=== PATIENT | male | born 1990 | race Caucasian/White ===

== ENCOUNTER 2021-01-21 20:20 | Emergency (ER) | payer SELFPAY ==
[2021-01-21] MEDS ORDERED: Morphine 4 MG/ML VIAL ONE (23:32)
== END 2021-01-22 00:15 | disposition home or self-care (01) ==
LOC: ERS 20:20
DX: S39.012A Strain of muscle, fascia and tendon of lower back, initial encounter (principal); F17.210 Nicotine dependence, cigarettes, uncomplicated
CPT/HCPCS: 96372; 99283; J2270